=== PATIENT | female | born 1960 | race Caucasian/White ===

== ENCOUNTER 2017-01-10 14:03 | Outpatient (CLI) | payer BC | END 2017-01-10 18:18 | disposition home or self-care (01) | LOC: SMA 14:03 | PROVIDERS: ATTEND Specialist | DX: Z12.31 Encounter for screening mammogram for malignant neoplasm of breast (principal) | CPT/HCPCS: 77067; G0202 ==

== ENCOUNTER 2018-01-13 15:19 | Outpatient (CLI) | payer BC | END 2018-01-13 19:00 | disposition home or self-care (01) | LOC: SMA 15:19 | PROVIDERS: ATTEND Specialist | DX: Z12.31 Encounter for screening mammogram for malignant neoplasm of breast (principal) | CPT/HCPCS: 77067 ==

== ENCOUNTER → 2019-03-11 | Outpatient (CLI) | payer BC | END | disposition home or self-care (01) | LOC: SMA 15:02 | PROVIDERS: ATTEND Specialist | DX: Z12.31 Encounter for screening mammogram for malignant neoplasm of breast (principal) | CPT/HCPCS: 77067 ==

== ENCOUNTER 2020-10-16 14:14 | Outpatient (CLI) | payer BC | END 2020-10-16 20:19 | disposition home or self-care (01) | LOC: SMA 14:14 | PROVIDERS: ATTEND Specialist | DX: Z12.31 Encounter for screening mammogram for malignant neoplasm of breast (principal) | CPT/HCPCS: 77067 ==

== ENCOUNTER 2021-10-29 12:55 | Outpatient (CLI) | payer BC | END 2021-10-29 20:26 | disposition home or self-care (01) | LOC: SMA 12:55 | PROVIDERS: ATTEND Specialist | DX: Z12.31 Encounter for screening mammogram for malignant neoplasm of breast (principal) | CPT/HCPCS: 77067 ==

== ENCOUNTER 2022-11-08 08:46 | Outpatient (CLI) | payer BC, OTHER | END 2022-11-08 19:07 | disposition home or self-care (01) | LOC: SMA 08:46 | PROVIDERS: ATTEND Specialist | DX: Z12.31 Encounter for screening mammogram for malignant neoplasm of breast (principal) | CPT/HCPCS: 77067 ==

== ENCOUNTER 2024-03-04 09:36 | Outpatient (CLI) | payer OTHER | END 2024-03-04 18:08 | disposition home or self-care (01) | LOC: SMA 09:36 | PROVIDERS: ATTEND Specialist | DX: Z12.31 Encounter for screening mammogram for malignant neoplasm of breast (principal) | CPT/HCPCS: 77067 ==